=== PATIENT | female | born 2000 | race Caucasian/White ===

== ENCOUNTER 2022-12-31 11:03 | Emergency (ER) | payer OTHER ==
[2022-12-31] MEDS ORDERED: Sodium Chloride 0.9% 1,000 ML IV ONE (11:09)
[2022-12-31 11:48] LABS: CHLORIDE,CL 104 mmol/L (98-107); SODIUM,NA 138 mmol/L (136-145)
[2022-12-31 11:58] LABS: ANION GAP 13.6 meq/L (7-15); ESTIMATED GFR 139 mL/min (>=60)
[2022-12-31 12:15] VITALS: PULSE 85
[2022-12-31 12:17] LABS: CORONAVIRUS COVID-19 NAA NEGATIVE (NEGATIVE); RESPIRATORY SYNCYTIAL VIR NAA NEGATIVE (NEGATIVE)
[2022-12-31 13:06] VITALS: BP 114/80
== END 2022-12-31 13:35 | disposition home or self-care (01) ==
LOC: LL.ED 11:03
DX: O99.891 Other specified diseases and conditions complicating pregnancy (principal); R42 Dizziness and giddiness; Z3A.32 32 weeks gestation of pregnancy; Z88.0 Allergy status to penicillin; Z20.822 Contact with and (suspected) exposure to COVID-19
CPT/HCPCS: 0241U; 36415; 80053; 81003; 83735; 85025; 86140; 93005; 93010; 96360; 99284; 99285-25; J7030